=== PATIENT | male | born 1965 | race African-American/Black ===

== ENCOUNTER 2017-02-23 06:33 | Emergency (ER) | payer OTHER ==
[~2017-02-23] VITALS: Ht 177.8 cm; Wt 77.1 kg
--- NOTE | 2017-02-23 06:40 | NUR ---
TO BED 6 A 51 YO MALE PATIENT BIBSELF TO BE MEDICALLY CLEARED FOR [facility]ALL[facility]. NAD NOTED. AMBULATORY WITH STEADY GAIT. AWAITING FOR ER MD KIMBLE.
--- NOTE | 2017-02-23 07:15 | NUR ---
RECEIVED REPORT FROM GABRIEL SALEH FOR NOAH.
[2017-02-23 07:56] LABS: BASOPHILS # (AUTO) 0.1 /CMM (0.0-0.2); BASOPHILS % (AUTO) 0.8 % (0.0-2.0); EOSINOPHILS # (AUTO) 0.1 /CMM (0.0-0.7); HEMATOCRIT 42 % (39-51); HEMOGLOBIN 13.8 g/dL (13.5-17.5); LYMPHOCYTES # (AUTO) 1.4 /CMM (0.8-4.8); LYMPHOCYTES % (AUTO) 19.3 % (20.0-44.0); MEAN CORPUSCULAR HEMOGLOBIN 32 PG (26.0-33.0); MEAN CORPUSCULAR HGB CONC 33 g/dl (31.0-36.0); MEAN CORPUSCULAR VOLUME 97 fL (80-96); MONOCYTES # (AUTO) 0.6 /CMM (0.1-1.30); MONOCYTES % (AUTO) 8.5 % (2.0-12.0); NEUTROPHILS # (AUTO) 4.9 /CMM (1.8-8.9); NEUTROPHILS % (AUTO) 70.4 % (43.0-81.0); PLATELET COUNT (AUTO) 244 /CMM (150-450); RDW COEFFICIENT OF VARIATION 12.7 (11.5-15.0); RED BLOOD CELL COUNT(AUTO) 4.34 MIL/uL (4.5-6.0); WHITE BLOOD COUNT (AUTO) 7.1 K/uL (4.3-11.0)
[2017-02-23 08:10] LABS: CALCIUM, SERUM 9.4 mg/dL (8.5-10.1); CARBON DIOXIDE 31 mmol/L (21-32); CHLORIDE 103 mmol/L (98-107); CREATININE 0.9 mg/dL (0.6-1.3); GLUCOSE 88 mg/dL (74-106); POTASSIUM 3.8 mmol/L (3.5-5.1); SODIUM SERUM 138 mmol/L (136-145); UREA NITROGEN, BLOOD 11 mg/dL (7-18)
[2017-02-23 08:16] LABS: ALANINE AMINOTRANSFERASE 37 U/L (12-78); ALBUMIN 3.4 g/dL (3.4-5.0); ALCOHOL, BLOOD < 3 mg/dL (0-0); ALKALINE PHOSPHATASE 87 U/L (46-116); ASPARTATE AMINOTRANSFERASE 35 U/L (15-37); BILIRUBIN,DIRECT 0.1 mg/dL (0.0-0.2); BILIRUBIN,TOTAL 0.5 mg/dL (0.2-1.0); TOTAL PROTEIN, SERUM 7.2 g/dL (6.4-8.2)
[2017-02-23 08:16] LABS: BILIRUBIN,URINE NEGATIVE (NEGATIVE); BLOOD, URINE TRACE Ery/uL (NEGATIVE); COLOR,URINE YELLOW (YELLOW); KETONES,URINE NEGATIVE (NEGATIVE); LEUKOCYTE ESTERASE ,URINE 1+ (NEGATIVE); NITRITE, URINE NEGATIVE (NEGATIVE); PROTEIN,URINE NEGATIVE (NEGATIVE); UGLUCOSE NEGATIVE (NEGATIVE); UROBILINOGEN,URINE 0.2 EU/dL (0.2)
[2017-02-23 08:17] LABS: APPEARANCE,URINE SLIGHTLY CLOUDY (CLEAR)
[2017-02-23 08:24] LABS: THYROID STIMULATING HORMONE 0.437 uIU/mL (0.358-3.74)
[2017-02-23 08:46] LABS: BACTERIA,URINE None seen /HPF (None Seen); SQUAMOUS EPITHELIAL CELL,UR Rare /HPF (None Seen)
--- NOTE | 2017-02-23 10:22 | NUR ---
RECEIVED CALL FROM GIANNI AMAYA. Addendum: 02/23/17 at 1023 by MEAGAN ADMITTING MD DR FRANZ, CALL FOR REPORT [phone] EXT [phone]
--- NOTE | 2017-02-23 10:29 | NUR ---
CALLED FOR TRANSPORT TO [facility]. ETA 45-60 MINUTES.
--- NOTE | 2017-02-23 10:42 | NUR ---
REPORT GIVEN TO ROMEO SALEH FOR TRANSFER TO [facility].
[2017-02-23 11:30] VITALS: BP 132/84
--- NOTE | 2017-02-23 11:57 | NUR ---
Patient discharged to [facility] in stable condition. Written and verbal after care instructions given. Patient verbalizes understanding of instruction. Report given to EMT at bedside. Patient left via stretcher.
== END 2017-02-23 11:59 ==
LOC: ER 06:36
DX: N39.0 Urinary tract infection, site not specified (principal); F32.9 Major depressive disorder, single episode, unspecified; R45.851 Suicidal ideations; F20.9 Schizophrenia, unspecified; Z88.6 Allergy status to analgesic agent
CPT/HCPCS: 36415; 80048-TC; 80076-TC; 80305; 81000-TC; 84443-TC; 85025-TC; 87086-TC; A4606; G0480; J7040; Z7610

== ENCOUNTER 2017-05-29 00:18 | Emergency (ER) | payer MEDICAID, OTHER ==
[~2017-05-29] VITALS: Ht 170.2 cm; Wt 84.8 kg
--- NOTE | 2017-05-29 00:27 | NUR ---
PT AMBULATED WITH STEADY GAIT TO RESTROOM TO GIVE URINE SPECIMEN.
--- NOTE | 2017-05-29 00:34 | NUR ---
URINE SPECIMEN COLLECTED. 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 PT IN ER BED 6
--- NOTE | 2017-05-29 00:35 | NUR ---
PT BB SELF, PT STATES "WAS SENT FROM [facility] FOR MEDICAL CLEARANCE"; DENIES ANY SX'S. PT AAOX4. RESP EVEN AND UNLABORED. NO S/S OF ACUTE DISTRESS NOTED. PT SAFETY AND COMFORT MEASURES IN PLACE. AWAITING MD FOR EVAL.
[2017-05-29 00:41] LABS: BASOPHILS % (AUTO) 0.1 % (0.0-2.0); EOSINOPHILS # (AUTO) 0.1 /CMM (0.0-0.7); HEMATOCRIT 40 % (39-51); HEMOGLOBIN 13.4 g/dL (13.5-17.5); LYMPHOCYTES # (AUTO) 1.7 /CMM (0.8-4.8); LYMPHOCYTES % (AUTO) 16.9 % (20.0-44.0); MEAN CORPUSCULAR HEMOGLOBIN 33 PG (26.0-33.0); MEAN CORPUSCULAR HGB CONC 34 g/dl (31.0-36.0); MEAN CORPUSCULAR VOLUME 97 fL (80-96); MONOCYTES % (AUTO) 10.1 % (2.0-12.0); NEUTROPHILS # (AUTO) 7.1 /CMM (1.8-8.9); NEUTROPHILS % (AUTO) 71.9 % (43.0-81.0); PLATELET COUNT (AUTO) 269 /CMM (150-450); RDW COEFFICIENT OF VARIATION 13.9 (11.5-15.0); RED BLOOD CELL COUNT(AUTO) 4.13 MIL/uL (4.5-6.0); WHITE BLOOD COUNT (AUTO) 9.9 K/uL (4.3-11.0)
[2017-05-29 00:52] LABS: CALCIUM, SERUM 8.8 mg/dL (8.5-10.1); CARBON DIOXIDE 31 mmol/L (21-32); CHLORIDE 99 mmol/L (98-107); GLUCOSE 96 mg/dL (74-106); POTASSIUM 3.8 mmol/L (3.5-5.1); SODIUM SERUM 139 mmol/L (136-145); UREA NITROGEN, BLOOD 15 mg/dL (7-18)
[2017-05-29 00:56] LABS: ALANINE AMINOTRANSFERASE 38 U/L (12-78); ALBUMIN 3.8 g/dL (3.4-5.0); ALCOHOL, BLOOD < 3 mg/dL (0-0); ALKALINE PHOSPHATASE 113 U/L (46-116); ASPARTATE AMINOTRANSFERASE 57 U/L (15-37); BILIRUBIN,DIRECT 0.1 mg/dL (0.0-0.2); BILIRUBIN,TOTAL 0.4 mg/dL (0.2-1.0); SALICYLATE 4.4 mg/dL (2.8-20.0); TOTAL PROTEIN, SERUM 8.2 g/dL (6.4-8.2)
[2017-05-29 00:57] LABS: ACETAMINOPHEN 0 ug/ml (10-30)
[2017-05-29 02:04] VITALS: BP 128/77
== END 2017-05-29 02:05 | disposition home or self-care (01) ==
LOC: ER 00:20
DX: Z13.89 Encounter for screening for other disorder (principal); F19.10 Other psychoactive substance abuse, uncomplicated; F32.9 Major depressive disorder, single episode, unspecified; F20.9 Schizophrenia, unspecified; Z88.6 Allergy status to analgesic agent; Z60.2 Problems related to living alone
CPT/HCPCS: 36415; 80048; 80076; 80305; 80329; 85025; 99284; A4606; G0480 ×2; Z7610

== ENCOUNTER 2019-08-16 02:04 | Emergency (ER) | payer MEDICAID, OTHER ==
[~2019-08-16] VITALS: Ht 175.3 cm; Wt 68.0 kg
--- NOTE | 2019-08-16 02:12 | NUR ---
PT AAOX4. AMBULATORY WITH STEADY GAIT. BIBSELF C/O SI TO HANG HIMSELF +HI. PLACED IN BED 15, IN GOWN, ON MONITOR, AND PULSE OX. VSS. PT BENI PALCED IN LOCKER. WILL CONTINUE TO [facility].
--- NOTE | 2019-08-16 02:32 | NUR ---
[employer] AT BEDSIDE FOR LABS AND URINE
[2019-08-16 02:37] LABS: APPEARANCE,URINE Clear (CLEAR); BILIRUBIN,URINE Negative (NEGATIVE); BLOOD, URINE Negative Ery/uL (NEGATIVE); COLOR,URINE Yellow (YELLOW); KETONES,URINE Negative (NEGATIVE); LEUKOCYTE ESTERASE ,URINE Negative (NEGATIVE); NITRITE, URINE Negative (NEGATIVE); PH,URINE 5.5 (5.0-8.0); PROTEIN,URINE Negative (NEGATIVE); UGLUCOSE Negative (NEGATIVE)
[2019-08-16] MEDS ORDERED: OLANZAPINE 5 MG TABLET ONE (02:39)
--- NOTE | 2019-08-16 02:44 | NUR ---
SECURITY AT BEDSIDE FOR WANDING
[2019-08-16 02:46] LABS: BACTERIA,URINE Rare /HPF (None Seen); RBC,URINE 0-2 /HPF (0-2); SQUAMOUS EPITHELIAL CELL,UR Rare /HPF (None Seen); WBC,URINE 0-2 /HPF (0-3)
[2019-08-16 02:53] LABS: BASOPHILS # (AUTO) 0.1 /CMM (0.0-0.2); BASOPHILS % (AUTO) 1.1 % (0.0-2.0); EOSINOPHILS % (AUTO) 3.6 % (0.0-6.0); HEMATOCRIT 38 % (39-51); HEMOGLOBIN 12.3 g/dL (13.5-17.5); LYMPHOCYTES # (AUTO) 2.3 /CMM (0.8-4.8); MEAN CORPUSCULAR HGB CONC 33 g/dl (31.0-36.0); MEAN CORPUSCULAR VOLUME 96 fL (80-96); MONOCYTES # (AUTO) 0.8 /CMM (0.1-1.30); MONOCYTES % (AUTO) 9.7 % (2.0-12.0); NEUTROPHILS # (AUTO) 4.9 /CMM (1.8-8.9); NEUTROPHILS % (AUTO) 58.6 % (43.0-81.0); PLATELET COUNT (AUTO) 303 /CMM (150-450); RED BLOOD CELL COUNT(AUTO) 3.92 MIL/uL (4.5-6.0); WHITE BLOOD COUNT (AUTO) 8.4 K/uL (4.3-11.0)
[2019-08-16 02:54] LABS: CALCIUM, SERUM 8.7 mg/dL (8.5-10.1); CARBON DIOXIDE 29 mmol/L (21-32); CHLORIDE 102 mmol/L (98-107); CREATININE 0.9 mg/dL (0.6-1.3); GLUCOSE 84 mg/dL (74-106); POTASSIUM 3.8 mmol/L (3.5-5.1); SODIUM SERUM 139 mmol/L (136-145); UREA NITROGEN, BLOOD 19 mg/dL (7-18)
[2019-08-16] MEDS ORDERED: OLANZAPINE 5 MG TABLET PO ONE (03:00)
[2019-08-16 03:02] LABS: ALANINE AMINOTRANSFERASE 32 U/L (12-78); ALBUMIN 3.3 g/dL (3.4-5.0); ALKALINE PHOSPHATASE 86 U/L (46-116); ASPARTATE AMINOTRANSFERASE 30 U/L (15-37); BILIRUBIN,DIRECT 0.1 mg/dL (0.0-0.2); BILIRUBIN,TOTAL 0.4 mg/dL (0.2-1.0); SALICYLATE 3.9 mg/dL (2.8-20.0); TOTAL PROTEIN, SERUM 7.6 g/dL (6.4-8.2)
[2019-08-16 03:11] LABS: ACETAMINOPHEN 0 ug/ml (10-30); ALCOHOL, BLOOD < 3 mg/dL (0-0)
--- NOTE | 2019-08-16 05:36 | NUR ---
Patient is resting comfortably in bed. Easily aroused. VSS.
--- NOTE | 2019-08-16 06:33 | NUR ---
CLINICAL INFORMATION STILL BEING REVIEWED BY [facility] AT THIS TIME
--- NOTE | 2019-08-16 07:15 | NUR ---
Patient is resting comfortably in bed. Easily aroused. VSS.
--- NOTE | 2019-08-16 08:45 | NUR ---
FOLLOWED UP WITH [facility]. STILL REVIEWING CLINICALS, WILL CALL US BACK WHEN THEY HAVE AN UPDATE.
--- NOTE | 2019-08-16 10:13 | NUR ---
SPOKED TO [facility]. WILL CALL BACK FOR UPDATE.
--- NOTE | 2019-08-16 10:55 | NUR ---
CALL BACK FROM [facility], ACCEPTED BY DR CLARK AT [place], REPORT TO BE CALLED AT [phone]. HOUSE LEO WALLER WILL GIVE ROOM NUMBER WHEN WE CALL FOR REPORT
--- NOTE | 2019-08-16 12:04 | NUR ---
Juan ramirez in [facility] - 08/16/19 at 1204 by KIM SPOKED TO SRIDHAR SALEH OF [facility] TO CALL BACK AFTER 1 HOUR FOR REPORT
--- NOTE | 2019-08-16 12:05 | NUR ---
SPOKED TO SRIDHAR SALEH OF [facility] TO CALL BACK AFTER 1 HOUR FOR REPORT
--- NOTE | 2019-08-16 13:44 | NUR ---
CALLED BACK ERASMO BARRON TO GIVE REPORT BUIT NO ANSWER AT THIS TIME.
--- NOTE | 2019-08-16 14:33 | NUR ---
REPORT GIVEN TO DELFINO WALLER FOR NOAH.
--- NOTE | 2019-08-16 14:39 | NUR ---
CALLED [facility] FOR TRANSPORT TO [facility]. ETA 30-45 MINUTES.
[2019-08-16 15:00] VITALS: BP 114/64
--- NOTE | 2019-08-16 15:40 | NUR ---
REPORT GIVEN TO EMS FOR PT TRANSFER TO [facility].
== END 2019-08-16 15:41 ==
LOC: ER 02:08
DX: R45.851 Suicidal ideations (principal); F32.9 Major depressive disorder, single episode, unspecified; Z88.6 Allergy status to analgesic agent; Z60.2 Problems related to living alone
CPT/HCPCS: 36415; 80048; 80076; 80305; 80307; 80329; 81001; 85025; 99285; G0480; 81000-TC

== ENCOUNTER 2022-01-01 01:18 | Emergency (ER) | payer MEDICAID ==
[~2022-01-01] VITALS: Ht 167.6 cm; Wt 68.0 kg
--- NOTE | 2022-01-01 01:30 | NUR ---
[address] C/O SI & HALLUCINATIONS HEARING VOICES TO SHOOT HIMSELF WITH A GUN. DOES NOT HAVE A GOOD IN HIS POSESSION. PT CHANGED INTO GOWN AND WANDED BY SECURITY. SITTER AT BEDSIDE AND SAFETY MEASURES IN PLACE.
--- NOTE | 2022-01-01 01:35 | NUR ---
URINE COLLECTED AND SENT TO LAB
--- NOTE | 2022-01-01 01:44 | NUR ---
covid swab done
--- NOTE | 2022-01-01 01:45 | NUR ---
[employer] MINISTER AT PT'S BEDSIDE
[2022-01-01 01:55] LABS: EOSINOPHILS % (AUTO) 1.1 % (0.0-6.0); HEMATOCRIT 37 % (39-51); LYMPHOCYTES % (AUTO) 21.3 % (20.0-44.0); MEAN CORPUSCULAR HGB CONC 32 g/dl (31.0-36.0); MEAN CORPUSCULAR VOLUME 94 fL (80-96); MONOCYTES # (AUTO) 0.5 K/uL (0.1-1.30); MONOCYTES % (AUTO) 11.3 % (2.0-12.0); NEUTROPHILS % (AUTO) 65.3 % (43.0-81.0); PLATELET COUNT (AUTO) 242 K/uL (150-450); RED BLOOD CELL COUNT(AUTO) 3.94 MIL/uL (4.5-6.0); WHITE BLOOD COUNT (AUTO) 4.7 K/uL (4.3-11.0)
[2022-01-01 02:03] LABS: BILIRUBIN,URINE SMALL (NEGATIVE); COLOR,URINE YELLOW (YELLOW); LEUKOCYTE ESTERASE ,URINE NEGATIVE (NEGATIVE); NITRITE, URINE NEGATIVE (NEGATIVE); PH,URINE 5.5 (5.0-8.0); PROTEIN,URINE TRACE mg/dl (NEGATIVE); UGLUCOSE NEGATIVE (NEGATIVE); UROBILINOGEN,URINE 0.2 EU/dL (0.2)
[2022-01-01 02:19] LABS: ALANINE AMINOTRANSFERASE 35 U/L (12-78); ALBUMIN 3.3 g/dL (3.4-5.0); ALCOHOL, BLOOD < 3 mg/dL (0-0); ALKALINE PHOSPHATASE 109 U/L (46-116); ASPARTATE AMINOTRANSFERASE 32 U/L (15-37); BILIRUBIN,DIRECT 0.1 mg/dL (0.0-0.2); BILIRUBIN,TOTAL 0.3 mg/dL (0.2-1.0); CALCIUM, SERUM 8.7 mg/dL (8.5-10.1); CARBON DIOXIDE 31 mmol/L (21-32); CHLORIDE 101 mmol/L (98-107); CREATININE 0.9 mg/dL (0.6-1.3); GLUCOSE 85 mg/dL (74-106); POTASSIUM 3.3 mmol/L (3.5-5.1); SODIUM SERUM 134 mmol/L (136-145); UREA NITROGEN, BLOOD 10 mg/dL (7-18)
[2022-01-01 02:21] LABS: ACETAMINOPHEN 0 ug/ml (10-30)
--- NOTE | 2022-01-01 07:11 | NUR ---
clinicals faxed to [facility] intake
--- NOTE | 2022-01-01 14:00 | NUR ---
KESHA called [facility] TEL:[phone] and intake requested SW to refax clinicals to fax:[phone] for voluntary psychiatric treatment at [facility] [[address] [place] [address] [place] [address] FAX:[phone]]. KESHA re-faxed the clinicals to fax:[phone].
[2022-01-01 17:50] VITALS: BP 126/72
--- NOTE | 2022-01-01 18:19 | NUR ---
CALL FROM INTAKE,ACCEPTED BY DR FRANZ AT [facility],REPORT TO [phone] EXT. [phone], UNIT 2
--- NOTE | 2022-01-01 18:43 | NUR ---
REPORT GIVEN TO VILMA SALEH FOR NOAH,INTAKE WILL SEND TRANSPORT
--- NOTE | 2022-01-01 22:15 | NUR ---
OCTAVIO PICKED UP BY [facility] [employer]. NO ACUTE DISTRESS NOTED.
== END 2022-01-01 22:15 ==
LOC: ER 01:28
DX: R45.851 Suicidal ideations (principal); F19.10 Other psychoactive substance abuse, uncomplicated; F20.9 Schizophrenia, unspecified; Z59.00 Homelessness unspecified; Z88.6 Allergy status to analgesic agent; Z20.822 Contact with and (suspected) exposure to COVID-19
CPT/HCPCS: 99285; 85025; 80048; 80076; 81003; 36415; 87426; 80143; 80320; 80307; C9803; G0480